=== PATIENT | male | born 1985 | race Caucasian/White ===

== ENCOUNTER → 2023-09-17 07:03 | Outpatient (REF) | payer OTHER, SELFPAY | LOC: MRI 07:03 | PROVIDERS: ATTENDING PHYSICIAN Family Medicine | DX: M54.16 Radiculopathy, lumbar region (principal); R20.0 Anesthesia of skin | CPT/HCPCS: 72148 ==

== ENCOUNTER → 2023-10-12 08:29 | Outpatient (REF) | payer OTHER, SELFPAY | LOC: RAD 08:29 | PROVIDERS: ATTENDING PHYSICIAN Family Medicine | DX: R93.429 Abnormal radiologic findings on diagnostic imaging of unspecified kidney (principal) | CPT/HCPCS: 76770 ==

== ENCOUNTER → 2025-01-16 07:14 | Outpatient (REF) | payer OTHER, SELFPAY | LOC: RCS 07:14 | PROVIDERS: ATTENDING PHYSICIAN Family Medicine | DX: I77.810 Thoracic aortic ectasia (principal) | CPT/HCPCS: 93306 ==